=== PATIENT | female | born 1950 | race Caucasian/White ===

== ENCOUNTER 2023-01-15 08:00 | Day surgery (SDC) | payer MEDICARE, OTHER, SELFPAY ==
[2023-01-15 08:19] VITALS: BMI 22.8
[2023-01-15 08:30] VITALS: BP 137/80; PULSE 87; RESP 17; TEMP 36.3; O2SAT 98
[2023-01-15] MEDS: LACTATED RINGERS 1,000 ML 42 ML IV (08:32)
--- NOTE | 2023-01-15 09:01 | PM.HP.1 ---
History of Present Illness History of Present Illness Date Patient Seen: 01/15/23 Time Patient Seen: 09:01 Chief complaint: Colonoscopy Narrative: Personal history of colon polyps. Here for colonoscopy. [facility] Social History household members: spouse Smoking Status: Never smoker alcohol intake: current Meds Home Medications and Allergies Home Medications Medication Instructions Recorded Confirmed Type bupropion HCl 150 mg 24 hr tablet, 150 mg PO QAM 01/15/23 01/15/23 History extended release sertraline 50 mg tablet 50 mg PO DAILY 01/15/23 01/15/23 History Allergies Allergy/AdvReac Type Severity Reaction Status Date / Time No Known Drug Allergies Allergy Verified 01/15/23 08:18 Review of Systems Review of Systems ROS: Yes All systems reviewed with the patient and are negative except as otherwise documented Exam Vital Signs (past 8 hours): - 01/15/23 08:30 Temperature 97.4 F L Pulse Rate 87 Respiratory Rate 17 Blood Pressure 137/80 Pulse Oximetry 98 Oxygen Delivery Method Room Air Oxygen Delivery Method Room Air Const General: cooperative HENMT Head: normal to inspection Eyes General: appearance normal, both eyes and all related structures Neck Neck: normal visual inspection Chest Chest: normal inspection of the chest Resp Effort & Inspection: normal respiratory effort Cardio Rate: regular rate GI Inspection: normal to inspection Skin General: no rashes or lesions noted Neuro General: patient alert and patient awake Extrem General: normal to inspection and no pedal edema Psych Appearance: grossly normal Assessment & Plan Assessment & Plan narrative: 72-year-old female with a personal history of colon polyps. Colonoscopy is pursued today.
--- NOTE | 2023-01-15 09:02 | PM.PREOP ---
Pre-operative Note Interval Note History & Physical reviewed/Exam performed by Physician: Yes Changes to H&P: No ASA Class (for procedural sedation): II
--- NOTE | 2023-01-15 10:32 | PM.OP.COLON ---
Operative Date/Time/Diagnoses Date of procedure: 01/15/23 Time of procedure: 10:32 Pre-op diagnosis: Personal history of colon polyps Post-op diagnosis: same Procedure & Clinicians Study performed: Colonoscopy Same procedure as scheduled: Yes Indications: Personal history of colon polyps Surgeon: Cole Castanon Procedure Notes SCOAP/Timeout: Done Procedure in detail: After the risks and benefits were explained, written and verbal informed consent was obtained. The patient was brought into the procedure room and placed into the left lateral decubitus position. Please see anesthesia note for sedation details. Digital rectal examination was accomplished. The scope was introduced into the patient and advanced under direct visualization to the cecum as identified by the appendiceal orifice and ileocecal valve. The scope was slowly withdrawn to carefully examine the mucosa for any defects or lesions. Comprehensive imaging was accomplished throughout the rectum including the dentate line. The colon was decompressed, the scope was then removed from the patient who tolerated the procedure well. Bowel prep adequate Pediatric colonoscope Scope withdrawal time: 8 minutes Sedation minutes: 17 Specimen(s): none sent Complications: none Impression: No significant polyps mass lesions or inflammatory features throughout. Endoscopic diagnosis Visually normal colonoscopy Post-procedure Plan for aftercare: Consider repeat colonoscopy for colon cancer screening 10 years. Disposition: PACU
[2023-01-15 10:35] VITALS: BP 109/73; PULSE 86; RESP 12; TEMP 36.2; O2SAT 100
[2023-01-15 10:40] VITALS: BP 106/71; PULSE 92; RESP 16; O2SAT 99
[2023-01-15 10:45] VITALS: BP 116/81; PULSE 80; RESP 14; O2SAT 99
[2023-01-15 10:49] VITALS: BP 125/78; PULSE 77; RESP 18; TEMP 36.4; O2SAT 98
== END 2023-01-15 11:20 | disposition home or self-care (01) ==
PROVIDERS: PCP Family Medicine; Referring Provider Internal Medicine Gastroenterology; Visit Provider Internal Medicine Gastroenterology
PROC: 0DJD8ZZ Inspection of Lower Intestinal Tract, Via Natural or Artificial Opening Endoscopic (ICD-10-PCS; CPT 45378; principal; 2023-01-15 09:30)
DX: Z12.11 Encounter for screening for malignant neoplasm of colon (principal); Z86.010 Personal history of colon polyps
CPT/HCPCS: G0105; J2704